=== PATIENT | male | born 1955 | race Two or more races ===

== ENCOUNTER 2024-11-28 11:42 | Outpatient (CLI) | payer MEDICARE ==
[2024-11-28 12:23] LABS: Hematocrit 53.4 % (42.0-52.0); Hemoglobin 17.1 g/dL (14.0-18.0)
== END 2024-11-28 11:43 | disposition home or self-care (01) ==
LOC: MADLAB 11:42
PROVIDERS: ATTEND Urology
DX: R79.89 Other specified abnormal findings of blood chemistry (principal)
CPT/HCPCS: 36415; 82670; 84403; 85014; 85018